=== PATIENT | female | born 1995 | race African-American/Black ===

== ENCOUNTER 2017-12-12 20:58 | Emergency (ER) | payer SELFPAY ==
[~2017-12-12] VITALS: Ht 165.1 cm; Wt 104.0 kg
[2017-12-12 21:10] VITALS: BP 143/82
== END 2017-12-13 04:45 | disposition left against medical advice (07) ==
LOC: ER 20:58
DX: Z53.21 Procedure and treatment not carried out due to patient leaving prior to being seen by health care provider (principal)